=== PATIENT | female | born 1955 | race Caucasian/White ===

== ENCOUNTER 2019-06-10 05:56 | Day surgery (SDC) | payer BC ==
[~2019-06-10] VITALS: Ht 170.2 cm; Wt 66.0 kg
[2019-06-10 06:45] VITALS: BP 110/73
== END 2019-06-10 10:30 | disposition home or self-care (01) ==
LOC: OUT 05:56
PROVIDERS: ATTEND Obstetrics & Gynecology
DX: N87.0 Mild cervical dysplasia (principal); N88.2 Stricture and stenosis of cervix uteri; N88.8 Other specified noninflammatory disorders of cervix uteri; E78.00 Pure hypercholesterolemia, unspecified; Z79.899 Other long term (current) drug therapy; Z88.0 Allergy status to penicillin
CPT/HCPCS: 36415; 57520; 81001; 85025; 87070; 87075; 87086; 87205; 88307; 93005; J0690; J1100; J2405; J2704; J3010; J3490; J7120